=== PATIENT | male | born 1940 | race Caucasian/White ===

== ENCOUNTER → 2024-01-20 08:49 | Outpatient (REF) | payer OTHER, SELFPAY ==
[2024-01-20 10:15] LABS: ALT (SGPT) 16 U/L (0-50); AST (SGOT) 24 U/L (17-59); Albumin 4.2 g/dl (3.5-5.0); Alkaline Phosphatase 82 U/L (38-126); Blood Urea Nitrogen 29 mg/dl (9-20); Calcium 9.6 mg/dl (8.4-10.2); Carbon Dioxide 22 mmol/L (22-30); Chloride 108 mmol/L (98-107); Glucose 93 mg/dl (70-99); HDL Cholesterol 45 mg/dl; Potassium 4.2 mmol/L (3.5-5.1); Sodium 140 mmol/L (135-145); Total Bilirubin 0.9 mg/dl (0.2-1.3); Total Protein 6.7 g/dl (6.3-8.2); Triglyceride 82 mg/dl (10-149); Very Low Density Lipoprotein 16 mg/dl (0-30); eGFR 59.26
[2024-01-20 10:23] LABS: LDL Cholesterol, Calculated 93 mg/dl; Total Cholesterol 154 mg/dl (50-199)
== END ==
LOC: RAD 08:49
PROVIDERS: ATTENDING PHYSICIAN Family Medicine
DX: N18.32 Chronic kidney disease, stage 3b (principal); E78.2 Mixed hyperlipidemia
CPT/HCPCS: 36415; 80053; 80061

== ENCOUNTER → 2024-07-13 09:08 | Outpatient (REF) | payer OTHER, SELFPAY ==
[2024-07-13 10:43] LABS: ALT (SGPT) 24 U/L (0-50); AST (SGOT) 29 U/L (17-59); Albumin 4.4 g/dl (3.5-5.0); Alkaline Phosphatase 72 U/L (38-126); Blood Urea Nitrogen 28 mg/dl (9-20); Calcium 9.7 mg/dl (8.4-10.2); Carbon Dioxide 26 mmol/L (22-30); Chloride 106 mmol/L (98-107); Glucose 96 mg/dl (70-99); HDL Cholesterol 46 mg/dl; LDL Cholesterol, Calculated 92 mg/dl; Potassium 4.4 mmol/L (3.5-5.1); Sodium 145 mmol/L (135-145); Total Cholesterol 154 mg/dl (50-199); Total Protein 6.8 g/dl (6.3-8.2); Triglyceride 84 mg/dl (10-149); Very Low Density Lipoprotein 16 mg/dl (0-30); eGFR 59.26
== END ==
LOC: REG 09:08
PROVIDERS: ATTENDING PHYSICIAN Family Medicine
DX: N18.32 Chronic kidney disease, stage 3b (principal); E78.2 Mixed hyperlipidemia
CPT/HCPCS: 36415; 80053; 80061

== ENCOUNTER → 2025-01-18 08:08 | Outpatient (REF) | payer OTHER, SELFPAY ==
[2025-01-18 09:38] LABS: ALT (SGPT) 17 U/L (0-50); AST (SGOT) 20 U/L (17-59); Albumin 4.7 g/dl (3.5-5.0); Alkaline Phosphatase 94 U/L (38-126); Blood Urea Nitrogen 25 mg/dl (9-20); Calcium 9.7 mg/dl (8.4-10.2); Carbon Dioxide 25 mmol/L (22-30); Chloride 108 mmol/L (98-107); Glucose 102 mg/dl (70-99); HDL Cholesterol 44 mg/dl; LDL Cholesterol, Calculated 94 mg/dl; Potassium 4.4 mmol/L (3.5-5.1); Sodium 144 mmol/L (135-145); Total Bilirubin 0.9 mg/dl (0.2-1.3); Total Cholesterol 158 mg/dl (50-199); Total Protein 7.2 g/dl (6.3-8.2); Triglyceride 102 mg/dl (10-149); Very Low Density Lipoprotein 20 mg/dl (0-30)
== END ==
LOC: REG 08:08
PROVIDERS: ATTENDING PHYSICIAN Family Medicine
DX: N18.32 Chronic kidney disease, stage 3b (principal); E78.2 Mixed hyperlipidemia
CPT/HCPCS: 36415; 80053; 80061

== ENCOUNTER → 2025-07-19 08:34 | Outpatient (REF) | payer OTHER, SELFPAY ==
[2025-07-19 09:30] LABS: ALT (SGPT) 18 U/L (0-50); AST (SGOT) 20 U/L (17-59); Albumin 4.6 g/dl (3.5-5.0); Alkaline Phosphatase 88 U/L (38-126); Blood Urea Nitrogen 27 mg/dl (9-20); Calcium 9.5 mg/dl (8.4-10.2); Carbon Dioxide 27 mmol/L (22-30); Chloride 108 mmol/L (98-107); Glucose 100 mg/dl (70-99); HDL Cholesterol 45 mg/dl; LDL Cholesterol, Calculated 93 mg/dl; Potassium 4.5 mmol/L (3.5-5.1); Sodium 142 mmol/L (135-145); Total Protein 7.3 g/dl (6.3-8.2); Very Low Density Lipoprotein 25 mg/dl (0-30); eGFR 58.89
== END ==
LOC: REG 08:34
PROVIDERS: ATTENDING PHYSICIAN Family Medicine
DX: E78.2 Mixed hyperlipidemia (principal)
CPT/HCPCS: 36415; 80053; 80061